=== PATIENT | male | born 1985 | race Hispanic/Latino ===

== ENCOUNTER 2019-01-24 23:28 | Emergency (ER) | payer BC ==
[2019-01-25] MEDS ORDERED: NA CHLORIDE 0.9% 1,000 ML ONE (00:05)
[2019-01-25 01:20] LABS: Absolute Lymphocytes (CBC) 2.9 K/uL (0.7-4.9); Absolute Monocytes 0.5 K/uL (0.1-1.3); Absolute Neutrophil 3.3 K/uL (1.8-8.0); Basophils % 1.4 % (0-1.3); Eosinophils % 1.1 % (0-4.4); Hematocrit 45.8 % (39.6-49.0); Lymphocytes % 42.4 % (15.3-44.8); MPV 11.8 fL (7.6-11.3); Monocytes % 6.9 % (3.3-12.3); RBC Red Blood Cell Count 5.32 M/uL (4.33-5.43)
[2019-01-25 01:34] LABS: ALT/SGPT 186 U/L (12-78); AST/SGOT 76 U/L (15-37); Alkaline Phosphatase 216 U/L (45-117); BUN Blood Urea Nitrogen 17 mg/dL (7-18); Bicarbonate 21 mmol/L (21-32); Bilirubin Direct < 0.1 mg/dL (0-0.2); Bilirubin Total 0.7 mg/dL (0.2-1.0); Lipase 136 U/L (73-393); Protein, Total 8.1 g/dL (6.4-8.2); Sodium Level 133 mmol/L (136-145)
[2019-01-25 01:35] LABS: Glucose Level 422 mg/dL (74-106)
[2019-01-25] MEDS ORDERED: INSULIN -REGULAR HUMAN 50 UNIT/0.5 ML ML ONE (01:54)
--- NOTE | 2019-01-25 03:11 | ER ---
Nurse's Notes [facility] Name: Ronni ePrrin Age: 33 yrs Sex: Male : 1985 Arrival Date: 01/24/2019 Time: 23:33 Bed 7 Private MD: Diagnosis: Type 2 diabetes mellitus with hyperglycemia Presentation: 01/24 23:43 Presenting complaint: Patient states: he has not been feeling well last few days is bb drinking and peeing a lot pt states his parents have diabetes and he used his svseez-cf-sya's meter and his BGL has been 300-400 the last 2 days. Transition of care: patient was not received from another setting of care. Onset of symptoms is unknown. Risk Assessment: Do you want to hurt yourself or someone else? Patient reports no desire to harm self or others. Initial Sepsis Screen: Does the patient meet any 2 criteria? No. Patient's initial sepsis screen is negative. Does the patient have a suspected source of infection? No. Patient's initial sepsis screen is negative. Care prior to arrival: None. 23:43 Method Of Arrival: Ambulatory bb 23:43 Acuity: SCHUYLER 3 bb Historical: - Allergies: 23:47 No Known Allergies; bb - Home Meds: 23:47 None [Active]; bb - PMHx: 23:47 None; bb - PSHx: 23:47 repair of cleft palate; bb - Immunization history:: Adult Immunizations up to date. - Social history:: Smoking status: Patient/guardian denies using tobacco, Patient uses alcohol, occasionally. Patient/guardian denies using street drugs. - Ebola Screening: : No symptoms or risks identified at this time. Screenin/25 00:34 Abuse screen: Denies threats or abuse. Nutritional screening: No deficits noted. ea Tuberculosis screening: No symptoms or risk factors identified. Fall Risk Assessment: 00:00 General: Appears in no apparent distress. Behavior is calm, cooperative, appropriate ea for age. General: Pt reports he is very thirsty and is constantly urinating. Pain: Denies pain. Neuro: Level of Consciousness is awake, alert, obeys commands, Oriented to person, place, time, situation. Cardiovascular: Patient's skin is warm and dry. Respiratory: Airway is patent Respiratory effort is even, unlabored, Respiratory pattern is regular, symmetrical. GI: No signs and/or symptoms were reported involving the gastrointestinal system. : Reports polyuria. EENT: No signs and/or symptoms were reported regarding the EENT system. Derm: Skin is pink, warm \T\ dry. 01:18 Reassessment: Patient and/or family updated on plan of care and expected duration. Pain ea level reassessed. Patient is alert, oriented x 3, equal unlabored respirations, skin warm/dry/pink. 02:50 Reassessment: Patient and/or family updated on plan of care and expected duration. Pain ea level reassessed. Patient is alert, oriented x 3, equal unlabored respirations, skin warm/dry/pink. 03:35 Reassessment: Patient and/or family updated on plan of care and expected duration. Pain ea level reassessed. Patient is alert, oriented x 3, equal unlabored respirations, skin warm/dry/pink. Discharge instructions given to patient, verbalized the understanding of instructions. Vital Signs: 01/24 23:47 BP 134 / 87; Pulse 84; Resp 16 S; Temp 97.9(O); Pulse Ox 97% on R/A; Weight 124.74 kg bb (R); Height 6 ft. 0 in. (182.88 cm) (R); 01/25 00:30 BP 124 / 67; Pulse 78; Resp 18; Pulse Ox 98% on R/A; ea 01:19 BP 126 / 86; Pulse 75; Resp 18; Pulse Ox 97% on R/A; ea 02:45 BP 107 / 50; Pulse 78; Resp 18; Pulse Ox 97% ; ea 03:37 BP 105 / 51; Pulse 60; Resp 18; Pulse Ox 99% ; ea 01/24 23:47 Body Mass Index 37.30 (124.74 kg, 182.88 cm) bb ED Course: 01/24 23:33 Patient arrived in ED. es 23:41 [facility] snw 23:41 Jovany Salazar MD is Attending Physician. snw 23:46 Triage completed. bb 23:47 Arm band placed on Patient placed in an exam room, on a stretcher, on pulse oximetry. bb Family accompanied patient. 23:53 Bren Wyatt RN is Primary Nurse. ea 01/25 00:00 Patient has correct armband on for positive identification. Bed in low position. Call ea light in reach. 00:10 Inserted saline lock: 20 gauge in right antecubital area, using aseptic technique. ea Blood collected. 01:35 Notified ED physician of a critical lab result(s). glucose 422. ak1 03:30 No provider procedures requiring assistance completed. IV discontinued, intact, ea bleeding controlled, No redness/swelling at site. Pressure dressing applied. Administered Medications: 00:15 Drug: NS 0.9% 1000 ml Route: IV; Rate: 1 bolus; Site: right antecubital; ea 01:30 Follow up: Response: No adverse reaction; IV Status: Completed infusion; IV Intake: ea 1000ml 01:52 Drug: Insulin Regular Human 5 units {Co-Signature: asia (Ira Van RN).} Route: IVP; ea Site: right antecubital; 02:47 Follow up: Response: No adverse reaction; Blood sugar is elevated ea 01:53 Drug: Insulin Regular Human 5 units {Co-Signature: asia (Ira Van RN).} Route: ea Sub-Q; Site: left upper arm; 02:46 Follow up: Response: Blood sugar is lowered ea Point of Care Testing: Blood Glucose: 02:46 Blood Glucose: 309 mg/dL; ea Ranges: Intake: 01:30 IV: 1000ml; Total: 1000ml. ea Outcome: 03:10 Discharge ordered by MD. brunson 03:37 Discharged to home ambulatory, with significant other. ea 03:37 Condition: good 03:37 Discharge instructions given to patient, Instructed on discharge instructions, follow up and referral plans. medication usage, Demonstrated understanding of instructions, follow-up care, medications, Prescriptions given X 1. 03:40 Patient left the ED. ea Signatures: Alisa Moscoso, INDIVIDUAL PENSION ADVISER-C INDIVIDUAL PENSION ADVISER-Csnw Zina Pathak Brenda, RN RN bb Krenek, Amber, RN RN ak1 Bren Wyatt RN RN ea Amber Krenek RN ak1 Corrections: (The following items were deleted from the chart) 04:30 04:08 Patient left the ED. ea ea
--- NOTE | 2019-01-25 03:11 | EDPHYS ---
Physician Documentation [facility] Name: Ronni Perrin Age: 33 yrs Sex: Male : 1985 Arrival Date: 01/24/2019 Time: 23:33 Bed 7 Private MD: ED Physician Jovany Salazar HPI: 01/24 23:51 This 33 yrs old Male presents to ER via Ambulatory with complaints of High snw Blood Sugar. 23:51 The patient or guardian reports generalized fatigue, polydipsia, polyphagia, polyuria, snw that was potentially precipitated by no particular event. Onset: The symptoms/episode began/occurred suddenly, 1.5 week(s) ago, and became persistent. Associated signs and symptoms: Pertinent positives: polydipsia, polyphagia, polyuria, increase FSBS readings. Called and made an appt on 02/01/19 with PCP.. Current symptoms: In the emergency department the patient's symptoms are unchanged from the initial presentation. The patient has not experienced similar symptoms in the past. The patient has not experienced similar symptoms in the past, but family has similar symptoms, mother, sister. The patient has not recently seen a physician. Historical: - Allergies: 23:47 No Known Allergies; bb - Home Meds: 23:47 None [Active]; bb - PMHx: 23:47 None; bb - PSHx: 23:47 repair of cleft palate; bb - Immunization history:: Adult Immunizations up to date. - Social history:: Smoking status: Patient/guardian denies using tobacco, Patient uses alcohol, occasionally. Patient/guardian denies using street drugs. - Ebola Screening: : No symptoms or risks identified at this time. ROS: 23:50 Constitutional: Negative for fever, chills, and weight loss, Eyes: Negative for injury, snw pain, redness, and discharge, ENT: Negative for injury, pain, and discharge, + dry mucous membranes Neck: Negative for injury, pain, and swelling, Cardiovascular: Negative for chest pain, palpitations, and edema, Respiratory: Negative for shortness of breath, cough, wheezing, and pleuritic chest pain, Abdomen/GI: Negative for abdominal pain, nausea, vomiting, diarrhea, and constipation, Back: Negative for injury and pain, : Negative for injury, bleeding, discharge, and swelling, polyuria MS/Extremity: Negative for injury and deformity, Skin: Negative for injury, rash, and discoloration, Neuro: Negative for headache, weakness, numbness, tingling, and seizure. Exam: 23:50 Constitutional: This is a well developed, well nourished patient who is awake, alert, snw and in no acute distress. Head/Face: Normocephalic, atraumatic. Eyes: Pupils equal round and reactive to light, extra-ocular motions intact. Lids and lashes normal. Conjunctiva and sclera are non-icteric and not injected. Cornea within normal limits. Periorbital areas with no swelling, redness, or edema. Neck: Trachea midline, no thyromegaly or masses palpated, and no cervical lymphadenopathy. Supple, full range of motion without nuchal rigidity, or vertebral point tenderness. No Meningismus. Chest/axilla: Normal chest wall appearance and motion. Nontender with no deformity. No lesions are appreciated. Cardiovascular: Regular rate and rhythm with a normal S1 and S2. No gallops, murmurs, or rubs. Normal PMI, no JVD. No pulse deficits. Respiratory: Lungs have equal breath sounds bilaterally, clear to auscultation and percussion. No rales, rhonchi or wheezes noted. No increased work of breathing, no retractions or nasal flaring. Abdomen/GI: Soft, non-tender, with normal bowel sounds. No distension or tympany. No guarding or rebound. No evidence of tenderness throughout. Back: No spinal tenderness. No costovertebral tenderness. Full range of motion. Skin: Warm, dry with normal turgor. Normal color with no rashes, no lesions, and no evidence of cellulitis. MS/ Extremity: Pulses equal, no cyanosis. Neurovascular intact. Full, normal range of motion. Neuro: Awake and alert, GCS 15, oriented to person, place, time, and situation. Cranial nerves II-XII grossly intact. Motor strength 5/5 in all extremities. Sensory grossly intact. Cerebellar exam normal. Normal gait. Psych: Awake, alert, with orientation to person, place and time. Behavior, mood, and affect are within normal limits. 23:50 ENT: External ear(s): are unremarkable, Ear canal(s): are normal, TM's: are normal, Nose: is normal, Mouth: Lips: normal, Oral mucosa: dry, Dental exam: normal. Vital Signs: 23:47 BP 134 / 87; Pulse 84; Resp 16 S; Temp 97.9(O); Pulse Ox 97% on R/A; Weight 124.74 kg bb (R); Height 6 ft. 0 in. (182.88 cm) (R); 01/25 00:30 BP 124 / 67; Pulse 78; Resp 18; Pulse Ox 98% on R/A; ea 01:19 BP 126 / 86; Pulse 75; Resp 18; Pulse Ox 97% on R/A; ea 02:45 BP 107 / 50; Pulse 78; Resp 18; Pulse Ox 97% ; ea 03:37 BP 105 / 51; Pulse 60; Resp 18; Pulse Ox 99% ; ea 01/24 23:47 Body Mass Index 37.30 (124.74 kg, 182.88 cm) bb MDM: 01/24 23:41 Patient medically screened. snw 01/25 03:12 Data reviewed: vital signs, nurses notes. Data interpreted: Pulse oximetry: on room air snw is 97 %. Interpretation: normal. Counseling: I had a detailed discussion with the patient and/or guardian regarding: the historical points, exam findings, and any diagnostic results supporting the discharge/admit diagnosis, lab results, the need for outpatient follow up, to return to the emergency department if symptoms worsen or persist or if there are any questions or concerns that arise at home. Special discussion: Based on the history and exam findings, there is no indication for further emergent testing or inpatient evaluation. I discussed with the patient/guardian the need to see the primary care provider for further evaluation of the symptoms. ED course: Pt has an appt with PCP on 02/01/19 for DM education/management. Will start low dose Glucophage and discuss expected side effects. . 01/24 23:49 Order name: Basic Metabolic Panel; Complete Time: 01:38 snw 01/24 23:49 Order name: CBC with Diff; Complete Time: 01:27 snw 01/24 23:49 Order name: Hepatic Function; Complete Time: 01:38 snw 01/24 23:49 Order name: Lipase; Complete Time: 01:38 snw 01/24 23:49 Order name: Hemoglobin A1c snw 01/24 23:49 Order name: Blood Culture* snw 01/24 23:49 Order name: IV Saline Lock; Complete Time: 00:30 01/24 23:49 Order name: Labs collected and sent; Complete Time: 00:31 01/25 02:35 Order name: FSBS; Complete Time: :01/25 03:38 Order name: Urine Dipstick--Ancillary (enter results); Complete Time: 15:45 ar5 Administered Medications: 00:15 Drug: NS 0.9% 1000 ml Route: IV; Rate: 1 bolus; Site: right antecubital; ea 01:30 Follow up: Response: No adverse reaction; IV Status: Completed infusion; IV Intake: ea 1000ml 01:52 Drug: Insulin Regular Human 5 units {Co-Signature: asia (Ira Van RN).} Route: IVP; ea Site: right antecubital; 02:47 Follow up: Response: No adverse reaction; Blood sugar is elevated ea 01:53 Drug: Insulin Regular Human 5 units {Co-Signature: asia (Ira Van RN).} Route: ea Sub-Q; Site: left upper arm; 02:46 Follow up: Response: Blood sugar is lowered ea Point of Care Testing: Blood Glucose: :46 Blood Glucose: 309 mg/dL; ea Ranges: Critical Glucose Levels:Adult <50 mg/dl or >400 mg/dl <40 mg/dl or >180 mg/dl Disposition: 06:50 Co-signature as Attending Physician, Jovany Salazar MD. rn Disposition: 01/25/19 03:10 Discharged to Home. Impression: Type 2 diabetes mellitus with hyperglycemia. - Condition is Stable. - Discharge Instructions: Type 2 Diabetes Mellitus, Diagnosis, Adult, Diabetes and Sick Day Management, Fat and Cholesterol Restricted Diet, High-Fiber Diet, Hyperglycemia, Form - Daily Diabetes Record. - Prescriptions for Glucophage 500 mg Oral Tablet - take 1 tablet by ORAL route every 12 hours; 20 tablet. - Work release form, Medication Reconciliation Form, Thank You Letter, Antibiotic Education, Prescription Opioid Use form. - Follow up: Private Physician; When: as scheduled; Reason: Recheck today's complaints, Continuance of care, Re-evaluation by your physician. Follow up: Emergency Department; When: As needed; Reason: Worsening of condition. Signatures: Dispatcher [employer] EDAlsia Dewitt FNP-C GIS PHYSICAL SCIENTIST-Csnw Trish Benjamin, RN RN Jovany Amador MD MD rn Antunez, Elena, RN RN ea Amber Krenek RN ak1 Corrections: (The following items were deleted from the chart) 04:08 03:10 01/25/2019 03:10 Discharged to Home. Impression: Type 2 diabetes mellitus with ea hyperglycemia. Condition is Stable. Forms are Medication Reconciliation Form, Thank You Letter, Antibiotic Education, Prescription Opioid Use. Follow up: Private Physician; When: as scheduled; Reason: Recheck today's complaints, Continuance of care, Re-evaluation by your physician. Follow up: Emergency Department; When: As needed; Reason: Worsening of condition. snw
[2019-01-25 03:44] LABS: Urine Blood NEGATIVE (NEG); Urine Glucose 2+ (NEG); Urine Protein NEGATIVE (NEG); Urine Specific Gravity 1.015 (1.005-1.030)
== END 2019-01-25 04:08 | disposition home or self-care (01) ==
LOC: ER 23:28
DX: E11.65 Type 2 diabetes mellitus with hyperglycemia (principal)
CPT/HCPCS: 36415; 80048; 80076; 81003; 82962; 83690; 85025; 87040; 96361; 96372; 96374; 99284; J7030

== ENCOUNTER 2019-04-06 20:29 | Emergency (ER) | payer BC ==
[2019-04-06] MEDS ORDERED: TETRACAINE HCL 0.5% 4ML OPTH ONE (21:14)
[2019-04-06] MEDS ORDERED: FLUORESCEIN SODIUM 1 MG/WRAP ONE (21:14)
[2019-04-06] MEDS ORDERED: TOBRAMYCIN SULF 0.3% OPTH OINT ONE (21:38)
--- NOTE | 2019-04-06 21:42 | ER ---
Nurse's Notes [facility] Name: Ronni Perrin Age: 33 yrs Sex: Male : 1985 Arrival Date: 04/06/2019 Time: 20:30 Bed 5 Private MD: Prashanth Ley E Diagnosis: Foreign body in cornea, right eye Presentation: 04/06 20:41 Presenting complaint: Patient states: I think I got something in my eye. It is ed1 irritated and I thought it would go away but it is just getting worse. Transition of care: patient was not received from another setting of care. Onset of symptoms was April 06, 2019. Risk Assessment: Do you want to hurt yourself or someone else? Patient reports no desire to harm self or others. Initial Sepsis Screen: Does the patient meet any 2 criteria? No. Patient's initial sepsis screen is negative. Does the patient have a suspected source of infection? No. Patient's initial sepsis screen is negative. Care prior to arrival: eye wash. 20:41 Method Of Arrival: Ambulatory ed1 20:41 Acuity: SCHUYLER 4 ed1 Triage Assessment: 20:42 General: Appears uncomfortable, Behavior is calm, cooperative. Pain: Complains of pain ed1 in right eye Pain currently is 6 out of 10 on a pain scale. Historical: - Allergies: 20:42 No Known Allergies; ed1 - Home Meds: 20:42 metformin 500 mg Oral tab 1 tab 2 times per day [Active]; ed1 - PMHx: 20:42 Diabetes - NIDDM; ed1 - PSHx: 20:42 Celft pallet; ed1 - Immunization history:: Adult Immunizations up to date, Last tetanus immunization: up to date. - Social history:: Smoking status: Patient/guardian denies using tobacco. - Ebola Screening: : Patient negative for fever greater than or equal to 101.5 degrees Fahrenheit, and additional compatible Ebola Virus Disease symptoms Patient denies exposure to infectious person Patient denies travel to an Ebola-affected area in the 21 days before illness onset No symptoms or risks identified at this time. Screenin:47 Abuse screen: Denies threats or abuse. Nutritional screening: No deficits noted. jd3 Tuberculosis screening: No symptoms or risk factors identified. Fall Risk None identified. Assessment: 20:55 General: Appears in no apparent distress. uncomfortable, Behavior is calm, cooperative, jd3 appropriate for age. Pain: Complains of pain in right eye Quality of pain is described as aching. Neuro: Level of Consciousness is awake, alert, obeys commands, Oriented to person, place, time, situation, Appropriate for age. Cardiovascular: Capillary refill < 3 seconds Patient's skin is warm and dry. Respiratory: Airway is patent Respiratory effort is even, unlabored, Respiratory pattern is regular, symmetrical. GI: No signs and/or symptoms were reported involving the gastrointestinal system. : No signs and/or symptoms were reported regarding the genitourinary system. EENT: Eyes are tearing on right eye with foreign body noted in right eye. Derm: Skin is intact, Skin is dry, Skin is normal, Skin temperature is warm. Musculoskeletal: Circulation, motion, and sensation intact. Range of motion: intact in all extremities. 21:46 Reassessment: Patient appears in no apparent distress at this time. Patient and/or jd3 family updated on plan of care and expected duration. Pain level reassessed. Patient is alert, oriented x 3, equal unlabored respirations, skin warm/dry/pink. Vital Signs: 20:42 BP 120 / 73; Pulse 65; Resp 18; Temp 97.6; Pulse Ox 98% on R/A; Weight 120.2 kg; Height ed1 6 ft. 0 in. (182.88 cm); Pain 6/10; 21:49 Pulse 67; Resp 18 S; Pulse Ox 98% on R/A; jd3 20:42 Body Mass Index 35.94 (120.20 kg, 182.88 cm) ed1 ED Course: 20:30 Patient arrived in ED. am2 20:31 Prashanth Ley MD is Private Physician. am2 20:41 Triage completed. ed1 20:42 Arm band placed on left wrist. ed1 20:54 Demond Chowdary PA is PHCP. jr8 20:54 Dre Holly MD is Attending Physician. jr8 20:56 Rigo Marcus RN is Primary Nurse. jd3 21:40 Chauncey Mari MD is Referral Physician. jr8 21:47 Patient has correct armband on for positive identification. Bed in low position. Call jd3 light in reach. Side rails up X 1. Adult w/ patient. 21:47 No provider procedures requiring assistance completed. Patient did not have IV access jd3 during this emergency room visit. Administered Medications: 21:22 Drug: Fluorescein Strip 1 strip {Note: given by PA. Isael} Route: Ophthalmic; jd3 Site: right eye; 21:50 Follow up: Response: No adverse reaction jd3 21:23 Drug: Tetracaine Drops 0.5 % 1 drops {Note: given by PA. Isael} Route: jd3 Ophthalmic; Site: right eye; 21:50 Follow up: Response: No adverse reaction jd3 21:28 Drug: Tobramycin Ointment (0.3 %) 1 application {Note: given by Trish CHRISTINA.} Route: jd3 Ophthalmic; Site: right eye; 21:50 Follow up: Response: No adverse reaction jd3 Outcome: 21:41 Discharge ordered by MD. lombardi 21:48 Discharged to home ambulatory, with family. jd3 21:48 Condition: stable 21:48 Discharge instructions given to patient, family, Instructed on discharge instructions, follow up and referral plans. medication usage, Demonstrated understanding of instructions, follow-up care, medications, Prescriptions given X 1. 21:50 Patient left the ED. jd3 Signatures: Michell Simon RN RN ed1 Demond Chowdary PA PA jr8 Esther Gomez am2 Rigo Marcus RN RN jd3
--- NOTE | 2019-04-06 21:42 | EDPHYS ---
Physician Documentation [facility] Name: Ronni Perrin Age: 33 yrs Sex: Male : 1985 Arrival Date: 04/06/2019 Time: 20:30 Bed 5 Private MD: Prashanth Ley E ED Physician Dre Holly HPI: 04/06 21:36 This 33 yrs old Male presents to ER via Ambulatory with complaints of Foreign jr8 Body In Eye - right. 21:36 The patient is experiencing pain, redness, tearing, The patient sustained Unknown. to jr8 the right eye, caused by debris. Onset: The symptoms/episode began/occurred acutely, yesterday. Duration: the symptoms are continuous. Aggravated by light, opening eye, Alleviated by nothing. Associated signs and symptoms: Pertinent positives: None. Patient does not utilize any form of vision correction. Severity of symptoms: At their worst the symptoms were mild in the emergency department the symptoms are unchanged. The patient has not experienced similar symptoms in the past. Patient stated that he was working on truck yesterday and felt something go into eye. Today started to have pain to right eye. Noticed possible FB there . Historical: - Allergies: 20:42 No Known Allergies; ed1 - Home Meds: 20:42 metformin 500 mg Oral tab 1 tab 2 times per day [Active]; ed1 - PMHx: 20:42 Diabetes - NIDDM; ed1 - PSHx: 20:42 Celft pallet; ed1 - Immunization history:: Adult Immunizations up to date, Last tetanus immunization: up to date. - Social history:: Smoking status: Patient/guardian denies using tobacco. - Ebola Screening: : Patient negative for fever greater than or equal to 101.5 degrees Fahrenheit, and additional compatible Ebola Virus Disease symptoms Patient denies exposure to infectious person Patient denies travel to an Ebola-affected area in the 21 days before illness onset No symptoms or risks identified at this time. ROS: 21:36 ENT: Negative for injury, pain, and discharge, Neck: Negative for injury, pain, and jr8 swelling, Cardiovascular: Negative for chest pain, palpitations, and edema, Respiratory: Negative for shortness of breath, cough, wheezing, and pleuritic chest pain, Abdomen/GI: Negative for abdominal pain, nausea, vomiting, diarrhea, and constipation, Back: Negative for injury and pain, MS/Extremity: Negative for injury and deformity, Skin: Negative for injury, rash, and discoloration, Neuro: Negative for headache, weakness, numbness, tingling, and seizure. 21:36 Eyes: Positive for pain, redness, tearing, of the iris of right eye. Exam: 21:36 Visual Acuity: Visual acuity is within normal limits. jr8 21:36 Constitutional: This is a well developed, well nourished patient who is awake, alert, and in no acute distress. Head/Face: Normocephalic, atraumatic. ENT: Nares patent. No nasal discharge, no septal abnormalities noted. Tympanic membranes are normal and external auditory canals are clear. Oropharynx with no redness, swelling, or masses, exudates, or evidence of obstruction, uvula midline. Mucous membranes moist. Cardiovascular: Regular rate and rhythm with a normal S1 and S2. No gallops, murmurs, or rubs. Normal PMI, no JVD. No pulse deficits. Respiratory: Lungs have equal breath sounds bilaterally, clear to auscultation and percussion. No rales, rhonchi or wheezes noted. No increased work of breathing, no retractions or nasal flaring. Skin: Warm, dry with normal turgor. Normal color with no rashes, no lesions, and no evidence of cellulitis. MS/ Extremity: Pulses equal, no cyanosis. Neurovascular intact. Full, normal range of motion. Neuro: Awake and alert, GCS 15, oriented to person, place, time, and situation. Cranial nerves II-XII grossly intact. Motor strength 5/5 in all extremities. Sensory grossly intact. Cerebellar exam normal. Normal gait. 21:36 Eyes: Periorbital structures: appear normal, Pupils: equal, round, and reactive to light and accomodation, Extraocular movements: intact throughout, Conjunctiva: normal, Corneas: foreign body, on the right, at 4 o'clock, a piece of metal, a fluorescein strip employed to appreciate the findings, Sclera: no appreciated abnormality, Anterior chamber: normal, Lids and lashes: appear normal, bilaterally, Examination of the other eye reveals no obvious gross abnormality. Vital Signs: 20:42 BP 120 / 73; Pulse 65; Resp 18; Temp 97.6; Pulse Ox 98% on R/A; Weight 120.2 kg; Height ed1 6 ft. 0 in. (182.88 cm); Pain 6/10; 21:49 Pulse 67; Resp 18 S; Pulse Ox 98% on R/A; jd3 20:42 Body Mass Index 35.94 (120.20 kg, 182.88 cm) ed1 Procedures: 21:36 Foreign Body Removal: a piece of metal, from the right eye, conjunctiva by needle, The jr8 patient tolerated the removal well, successfully extracted FB from eye. Eye Exam: Tetracaine. MDM: 20:53 Patient medically screened. jr8 21:36 Data reviewed: vital signs, nurses notes, and as a result, I will discharge patient. jr8 Data interpreted: Pulse oximetry: on room air is 98 %. Interpretation: normal. Counseling: I had a detailed discussion with the patient and/or guardian regarding: the historical points, exam findings, and any diagnostic results supporting the discharge/admit diagnosis, the need for outpatient follow up, an opthalmologist, to return to the emergency department if symptoms worsen or persist or if there are any questions or concerns that arise at home. Administered Medications: 21:22 Drug: Fluorescein Strip 1 strip {Note: given by PA. Isael} Route: Ophthalmic; j Site: right eye; 21:50 Follow up: Response: No adverse reaction jd3 21:23 Drug: Tetracaine Drops 0.5 % 1 drops {Note: given by PA. Isael} Route: jd3 Ophthalmic; Site: right eye; 21:50 Follow up: Response: No adverse reaction jd3 21:28 Drug: Tobramycin Ointment (0.3 %) 1 application {Note: given by Trish RODRIGUEZ} Route: jd3 Ophthalmic; Site: right eye; 21:50 Follow up: Response: No adverse reaction jd3 Disposition: 04/07 04:44 Co-signature as Attending Physician, Dre Holly MD I agree with the assessment and 4 plan of care. Disposition: 04/06/19 21:41 Discharged to Home. Impression: Foreign body in cornea, right eye. - Condition is Stable. - Discharge Instructions: Corneal Abrasion, Eye Foreign Body. - Prescriptions for Tobrex 0.3 % Ophthalmic ointment - apply 1 application by OPHTHALMIC route 2-3 times daily for 7 days; 1 tube. - Medication Reconciliation Form, Thank You Letter, Antibiotic Education, Prescription Opioid Use form. - Follow up: Chauncey Mari MD; When: 2 - 3 days; Reason: Recheck today's complaints, Continuance of care, Re-evaluation by your physician. - Problem is new. - Symptoms have improved. Signatures: Michell Simon RN RN ed1 Demond Chowdary PA PA jr8 Rigo Marcus RN RN jd3 Dre Holly MD MD tw4 Corrections: (The following items were deleted from the chart) 04/06 21:40 21:36 Foreign Body Removal: a piece of metal, from the right eye, conjunctiva by jr8 needle, The patient tolerated the removal well, jr8 21:50 21:41 04/06/2019 21:41 Discharged to Home. Impression: Foreign body in cornea, right jd3 eye. Condition is Stable. Forms are Medication Reconciliation Form, Thank You Letter, Antibiotic Education, Prescription Opioid Use. Follow up: Chauncey Mari; When: 2 - 3 days; Reason: Recheck today's complaints, Continuance of care, Re-evaluation by your physician. Problem is new. Symptoms have improved. jr8
== END 2019-04-06 21:50 | disposition home or self-care (01) ==
LOC: ER 20:29
PROC: 08C8XZZ Extirpation of Matter from Right Cornea, External Approach (ICD-10-PCS; principal; 2019-04-06)
DX: T15.01XA Foreign body in cornea, right eye, initial encounter (principal); E11.9 Type 2 diabetes mellitus without complications
CPT/HCPCS: 99283

== ENCOUNTER 2021-06-30 17:29 | Emergency (ER) | payer BC, SELFPAY ==
--- NOTE | 2021-06-30 19:40 | RAD REPORT ---
EXAM DESCRIPTION: RAD - Hand Left 3 View - 06/30/2021 7:10 pm CLINICAL HISTORY: laceration COMPARISON: No comparisons FINDINGS: No left hand fractures identified. No malalignment. No radiopaque foreign bodies. IMPRESSION: No acute osseous abnormality involving the left hand.
[2021-06-30] MEDS ORDERED: LIDOCAINE 1% MPF 30 ML VIAL ONE (21:53)
[2021-06-30] MEDS ORDERED: TETANUS & DIPHTHERIA TOX,ADULT 0.5 ML VIAL ONE (22:56)
--- NOTE | 2021-06-30 23:02 | ER ---
Nurse's Notes [facility] Name: Ronni Perrin Age: 35 yrs Sex: Male : 1985 Arrival Date: 06/30/2021 Time: 17:31 Bed 12 Private MD: Diagnosis: Finger Laceration Presentation: 06/30 18:28 Chief complaint: Patient states: left 5th digit laceration with a razor blade today. iw Coronavirus screen: Client denies travel out of the [place] in the last 14 days. At this time, the client does not indicate any symptoms associated with coronavirus-19. Ebola Screen: No symptoms or risks identified at this time. Risk Assessment: Do you want to hurt yourself or someone else? Patient reports no desire to harm self or others. Onset of symptoms was June 30, 2021. 18:28 Method Of Arrival: Ambulatory iw 18:28 Acuity: SCHUYLER 3 sv 18:29 Initial Sepsis Screen: Does the patient meet any 2 criteria? No. Patient's initial iw sepsis screen is negative. Does the patient have a suspected source of infection? No. Patient's initial sepsis screen is negative. Triage Assessment: 18:31 General: Appears in no apparent distress. Behavior is calm, cooperative, appropriate iw for age. Pain: Complains of pain in left little finger. Neuro: Level of Consciousness is awake, alert, obeys commands, Oriented to person, place, time, situation. Historical: - Allergies: 18:29 No Known Allergies; iw - Immunization history:: Client reports having NOT received the Covid vaccine. Last tetanus immunization: unknown. - Social history:: Smoking status: Patient denies any tobacco usage or history of. Screenin:31 Abuse screen: Denies threats or abuse. Nutritional screening: No deficits noted. bb Tuberculosis screening: No symptoms or risk factors identified. Fall Risk None identified. Assessment: 21:31 General: Appears in no apparent distress. Behavior is calm, cooperative. Pain: bb Complains of pain in left little finger. Neuro: Level of Consciousness is awake, alert, obeys commands, Oriented to person, place, time, situation. Cardiovascular: Capillary refill < 3 seconds Patient's skin is warm and dry. Respiratory: Respiratory effort is even, unlabored, Respiratory pattern is regular. GI: No signs and/or symptoms were reported involving the gastrointestinal system. Derm: Skin is pink, warm \T\ dry. Musculoskeletal: Circulation, motion, and sensation intact. Injury Description: Laceration sustained to left little finger. 23:00 Reassessment: Patient is alert, oriented x 3, equal unlabored respirations, skin bb warm/dry/pink. sutures intact, well-approximated, antibiotic ointment applied and covered with a bandaid. Pt verbalized understanding of and agrees to plan of care discharge instructions given pt ambulated with steady gait to exit accompanied by spouse. Vital Signs: 18:29 BP 108 / 68; Pulse 98; Resp 16; Temp 97.1; Pulse Ox 99% ; Weight 120.2 kg; Height 6 ft. iw 0 in. (182.88 cm); Pain 6/10; 18:29 Body Mass Index 35.94 (120.20 kg, 182.88 cm) iw ED Course: 17:31 Patient arrived in ED. rg4 18:28 Arm band placed on. iw 18:29 Triage completed. iw 19:10 Hand Left 3 View XRAY In Process Unspecified. EDMS 21:28 Satnam Molina PA is PHCP. jmm 21:29 Mat Herrera MD is Attending Physician. [facility] 21:31 Trish Benjamin RN is Primary Nurse. bb 21:31 Patient has correct armband on for positive identification. Bed in low position. Call bb light in reach. Adult w/ patient. 21:31 Assist provider with laceration repair on left little finger Set up tray. Patient did bb not have IV access during this emergency room visit. 22:45 Dressings: Band aid x 1 left little finger triple antibiotic ointment. bb Administered Medications: 22:12 Drug: Lidocaine (1 %) 5 ml {Note: by Satnam Molina SENIOR JAVA SOFTWARE DEVELOPER.} Volume: 20 ml; Route: bb Infiltration; 23:00 Follow up: Response: No adverse reaction bb 22:41 Drug: Tetanus-Diphtheria Toxoid Adult 0.5 ml {Box Lidder: [employer] 1. Exp: ea 02/15/2023. Lot #: [id number] } Route: IM; Site: left deltoid; 23:00 Follow up: Response: No adverse reaction bb Outcome: 23:00 Discharged to home ambulatory, with family. bb 23:00 Condition: stable 23:00 Discharge instructions given to patient, Instructed on discharge instructions, follow up and referral plans. wound care, Demonstrated understanding of instructions, follow-up care, wound care. 23:01 Discharge ordered by MD. mims 23:19 Patient left the ED. bb Signatures: Dispatcher [employer] EDJoyce Carroll, RN Satnam Cruz PA PA jmm Ballard, Brenda RN Whitney Mota RN RN iw Garcia, Rubi 4 Bren Wyatt RN RN ea Corrections: (The following items were deleted from the chart) 18:32 18:29 Resp 16bpm; Pulse Ox 99%; Temp 97.1F; 120.2 kg; Height 6 ft. 0 in.; BMI: 35.9; iw Pain 6/10; iw 18:36 18:28 Acuity: SCHUYLER 4 iw sv
--- NOTE | 2021-06-30 23:02 | EDPHYS ---
Physician Documentation [facility] Name: Ronni Perrin Age: 35 yrs Sex: Male : 1985 Arrival Date: 06/30/2021 Time: 17:31 Bed 12 Private MD: ED Physician Mat Herrera HPI: 06/30 18:33 This 35 yrs old Male presents to ER via Ambulatory with complaints of Finger jmm Laceration. 18:33 The patient or guardian reports injury, a laceration. Onset: The symptoms/episode jmm began/occurred acutely. Modifying factors: The symptoms are alleviated by nothing, the symptoms are aggravated by nothing. Is a 35-year-old male no chronic medical conditions presents emerged part with a laceration to his left fifth finger. This occurred while he was attempting to scrape Windows 10 using a razor blade. Patient denies other known injury. Patient states he was having difficulty controlling bleeding at the time. Patient is unsure of tetanus vaccine status. Historical: - Allergies: 18:29 No Known Allergies; iw - Immunization history:: Client reports having NOT received the Covid vaccine. Last tetanus immunization: unknown. - Social history:: Smoking status: Patient denies any tobacco usage or history of. ROS: 18:33 Constitutional: Negative for fever, chills, and weight loss, Cardiovascular: Negative jmm for chest pain, palpitations, and edema, Respiratory: Negative for shortness of breath, cough, wheezing, and pleuritic chest pain. 18:33 MS/extremity: Positive for injury or acute deformity, laceration. 18:33 All other systems are negative. Exam: 18:33 Constitutional: This is a well developed, well nourished patient who is awake, alert, jmm and in no acute distress. Head/Face: atraumatic. Eyes: EOMI, no conjunctival erythema appreciated ENT: Moist Mucus Membranes Neck: Trachea midline, Supple Chest/axilla: Normal chest wall appearance and motion. Cardiovascular: Regular rate and rhythm. No edema appreciated Respiratory: Normal respirations, no respiratory distress appreciated Abdomen/GI: Non distended, soft Back: Normal ROM 18:33 Skin: 1.5 cm laceration noted to the palmar side of the left proximal fifth phalanx. 18:33 Neuro: Orientation: is normal, Mentation: is normal, Memory: is normal. 18:33 Psych: Behavior/mood is pleasant, cooperative. Vital Signs: 18:29 BP 108 / 68; Pulse 98; Resp 16; Temp 97.1; Pulse Ox 99% ; Weight 120.2 kg; Height 6 ft. iw 0 in. (182.88 cm); Pain 6/10; 18:29 Body Mass Index 35.94 (120.20 kg, 182.88 cm) iw MDM: 21:32 Patient medically screened. alcides 23:00 Data reviewed: vital signs, nurses notes. Counseling: I had a detailed discussion with prasanna the patient and/or guardian regarding: the historical points, exam findings, and any diagnostic results supporting the discharge/admit diagnosis, the need for outpatient follow up, to return to the emergency department if symptoms worsen or persist or if there are any questions or concerns that arise at home. ED course: Patient given head injury return precautions. patient understood and agrees with the plan of care. . 06/30 18:33 Order name: Hand Left 3 View XRAY; Complete Time: 21:31 06/30 22:12 Order name: Dressing - Wound; Complete Time: 22:12 bb 06/30 22:12 Order name: Gloves, Sterile; Complete Time: 22:12 bb 06/30 22:12 Order name: Setup Suture Tray; Complete Time: 22:12 bb Administered Medications: 22:12 Drug: Lidocaine (1 %) 5 ml {Note: by Satnam Molina PARTS ANALYST.} Volume: 20 ml; Route: bb Infiltration; 23:00 Follow up: Response: No adverse reaction 22:41 Drug: Tetanus-Diphtheria Toxoid Adult 0.5 ml {Production Support Supervisor: [employer]. Exp: ea 02/15/2023. Lot #: [id number] } Route: IM; Site: left deltoid; 23:00 Follow up: Response: No adverse reaction bb Disposition Summary: 06/30/21 23:01 Discharge Ordered Location: Home [facility] Condition: Stable prasanna Diagnosis - Finger Laceration prasanna Followup: prasanna - With: Private Physician - When: 2 - 3 days - Reason: Recheck today's complaints, Continuance of care, Re-evaluation by your physician Discharge Instructions: - Discharge Summary Sheet prasanna - Laceration Care, Adult prasanna Forms: - Medication Reconciliation Form prasanna - Thank You Letter jmm - Antibiotic Education jmdayton - Prescription Opioid Use [facility] Addendum: 07/02/2021 06:44 Co-signature as Attending Physician, Mat Herrera MD I agree with the assessment and c farah plan of care. Signatures: Dispatcher [employer] EDMat Zepeda MD MD cha Mickail, Joel, PA PA jmm Ballard, Brenda, Whitney Mota RN, RN RN iw Antunez, Elena, RN RN ea
[2021-07-01 00:54] VITALS: BP 108/68; TEMP 97.1; O2SAT 99
== END 2021-06-30 23:19 | disposition home or self-care (01) ==
LOC: ER 17:29
PROC: 0JQK0ZZ Repair Left Hand Subcutaneous Tissue and Fascia, Open Approach (ICD-10-PCS; principal; 2021-06-30)
DX: S61.217A Laceration without foreign body of left little finger without damage to nail, initial encounter (principal); W45.8XXA Other foreign body or object entering through skin, initial encounter; Z23 Encounter for immunization
CPT/HCPCS: 90471; 90714; 99283